=== PATIENT | female | born 1990 | race American Indian/Alaskan Native ===

== ENCOUNTER 2018-05-15 12:11 | Outpatient (CLI) | payer MEDICAID ==
[2018-05-15] MEDS ORDERED: LACTATED RINGERS 500 ML IV ONE (13:08)
--- NOTE | 2018-05-15 13:25 | Event Note ---
Date: 05/15/18 Pt denies any additional leaking. pad and chux dry. Spec exam done - thick yeast like discharge noted. nitrazine negative. Wet prep sent to lab. will get gary. [facility] Cat 1. Discussed with patient - will d/c home if GARY normal. rx printed for terazol.
[2018-05-15 13:27] LABS: Bacteria,Urine 1+ /HPF (Negative); Bilirubin,Urine NEG (Negative); Blood,Urine NEG (Negative); Color,Urine Yellow (Yellow); Mucus,Urine FEW /HPF; Protein,Urine <15 mg/dL mg/dL (Negative); Urobilinogen,Urine < 2.0 mg/dL (<2.0)
[2018-05-15 14:01] VITALS: BP 110/66
--- NOTE | 2018-05-16 07:41 | Ultrasound Report ---
FINAL REPORT PROCEDURE: US OB LIMITED TECHNIQUE: Real-time limited sonographic examination was performed for evaluation of size, pos ition, heartbeat, fluid volume for each fetus with image documentation (1 or more fetuses). CPT 7681 5 HISTORY: ashley COMPARISON: No prior studies are available for comparison. FINDINGS: The amniotic fluid index is 12.9 centimeters. position is cephalic. heart rate is 146 beats per minute. IMPRESSION: Normal amniotic fluid index.
== END 2018-05-15 15:55 | disposition home or self-care (01) ==
LOC: TRG 12:11
PROVIDERS: ATTEND Obstetrics & Gynecology
DX: O47.02 False labor before 37 completed weeks of gestation, second trimester (principal); Z3A.24 24 weeks gestation of pregnancy
CPT/HCPCS: 59025; 76815; 81001; 87210

== ENCOUNTER 2018-07-01 19:40 | Outpatient (CLI) | payer MEDICAID ==
[2018-07-01 22:03] VITALS: BP 141/83
[2018-07-01] MEDS ORDERED: LACTATED RINGERS 1,000 ML IV ONE (22:03)
[2018-07-01 23:14] LABS: Bilirubin,Urine NEG (Negative); Blood,Urine SM (Negative); Color,Urine Yellow (Yellow); Hyaline Casts,Urine 1 /LPF; Mucus,Urine FEW /HPF; Protein,Urine <15 mg/dL mg/dL (Negative); Urobilinogen,Urine < 2.0 mg/dL (<2.0)
--- NOTE | 2018-07-01 23:45 | Ultrasound Report ---
PROCEDURE: US OB BPP WO NON-STRESS TECHNIQUE: Sonographic evaluation for breathing, movement, tone, and amniotic flui d volume was performed. HISTORY: decrease movement COMPARISONS: None . FINDINGS: FETUS Amniotic fluid volume Normal-score 2. At least one vertical pocket >2 cm or more in vertical axis . breathing: Normal-score 2 . movement: Normal-score 2 . tone: Normal-score 2 . Score: 8 of 8 . IMPRESSION: Normal biophysical profile . This document is electronically signed by Keyanna Alatorre DO., July 01 2018 11:43:09 PM ET
== END 2018-07-02 00:01 | disposition home or self-care (01) ==
LOC: TRG 19:40
PROVIDERS: ATTEND Obstetrics & Gynecology
DX: O47.03 False labor before 37 completed weeks of gestation, third trimester (principal); Z3A.31 31 weeks gestation of pregnancy
CPT/HCPCS: 59025; 76819; 81001; 96360; J7120

== ENCOUNTER 2018-08-19 20:56 | Outpatient (CLI) | payer MEDICAID | END 2018-08-19 22:35 | disposition home or self-care (01) | LOC: TRG 20:56 | PROVIDERS: ATTEND Obstetrics & Gynecology | DX: O88.113 Amniotic fluid embolism in pregnancy, third trimester (principal); Z3A.38 38 weeks gestation of pregnancy ==

== ENCOUNTER 2018-09-02 12:02 | Inpatient (IN) | payer MEDICAID ==
[2018-09-02 13:50] LABS: Hematocrit 37.4 % (30.3-42.9); Hemoglobin 12.3 gm/dl (10.1-14.3); Mean Corpuscular HGB Conc 33 % (30-34); Mean Corpuscular Volume 86 fl (79-97); Platelet Count 136 K/mm3 (140-440); Red Blood Count 4.37 M/mm3 (3.65-5.03); Red Cell Distribution Width 15.9 % (13.2-15.2)
[2018-09-02 14:07] LABS: Uric Acid 6.5 mg/dL (3.5-7.6)
[2018-09-02 14:11] LABS: Alanine Aminotransferase < 5 units/L (7-56)
[2018-09-02] MEDS ORDERED: TYLENOL PO ONE (17:08)
[2018-09-02 17:29] LABS: Bacteria,Urine 1+ /HPF (Negative); Bilirubin,Urine NEG (Negative); Blood,Urine NEG (Negative); Color,Urine Yellow (Yellow); Protein,Urine <15 mg/dL mg/dL (Negative); Urobilinogen,Urine < 2.0 mg/dL (<2.0)
[2018-09-02] MEDS ORDERED: BRETHINE IVP PRN (17:39)
[2018-09-02] MEDS ORDERED: MINERAL OIL PO PRN (17:39)
[2018-09-02] MEDS ORDERED: ZOFRAN IV PRN (17:39)
[2018-09-02] MEDS ORDERED: BRETHINE SUB-Q PRN (17:39)
--- NOTE | 2018-09-02 17:53 | History and Physical Report ---
History of Present Illness Date of examination: 09/02/18 Chief complaint: Headaches @ 40+2, mildly elevated b/p History of present illness: EDC Confirmation: 08/31/2018 Past History : 1 Term Births: 0 Premature Births: 0 Living Children: 0 Para: 0 Mult. Births: 0 Prev : 0 Prev. attempt? 0 Aborta: 0 Elect. Ab: 0 Spont. Ab: 0 Ectopics: 0 Past Medical History: Reviewed history from 09/18/2017 and no changes required: Chronic sinusitis Headaches(Migraines) Past Surgical History: Reviewed history from 09/18/2017 and no changes required: Negative Past Surgical History Past Medical History Family Hx: Maternal aunt: DM and HTN Social Hx: Patient is single no ETOH/drugs/smoking Smoking History: Patient has never smoked. Infection History Hx of STD: trich HIV Risk Eval: low risk Hepatitis B Risk Eval: low risk Personal hx. of genital herpes: no Partner hx. of genital herpes: no Rash, Viral, or Febrile illness since last LMP? no Varicella/Chicken Pox Status: Unknown TB Risk: no Genetic History Congenital Heart Defect: Mom: no Dad: no Kristen Disease: Mom: no Dad: no Thalassemia Mom: no Dad: no Neural Tube Defect Mom: no Dad: no Down's Syndrome Mom: no Dad: no Baron-Sachs Mom: no Dad: no Sickle Cell Disease/Trait Mom: no Dad: no Hemophilia Mom: no Dad: no Muscular Dystrophy Mom: no Dad: no Cystic Fibrosis Mom: no Dad: no Anabel Chorea Mom: no Dad: no Mental Retardation Mom: no Dad: no Fragile X Mom: no Dad: no Other Genetic/Chromosomal Disorder Mom: no Dad: no Child w/other defect Mom: no Dad: no Enviromental Exposures Xray Exposure: no Medication, drug, or alcohol use since LMP: no Chemical/Other Exposure: no Exposure to Cat Liter: no Hx of Parvovirus (Fifth Disease): no Occupational Exposure to Children: none Active Medications: PLUS 27-1 MG ORAL TABLET ( VIT-FE FUMARATE-FA) 1 po daily Current Allergies (reviewed today): No known allergies Past History Past Medical History: other (see HPI) Past Surgical History: other (see HPI) COATER SLATE History: other (see HPI) Family/Genetic History: other (see HPi) - Obstetrical History Expected Date of Delivery: 08/31/18 Actual Gestation: 40 Week(s) 2 Day(s) : 1 Para: 0 Hx # Term Pregnancies: 0 Number of Pregnancies: 0 Spontaneous Abortions: 0 Induced : 0 Number of Living Children: 0 Medications and Allergies Allergies Allergy/AdvReac Type Severity Reaction Status Date / Time latex Allergy Rash Verified 09/02/18 14:11 Home Medications Medication Instructions Recorded Confirmed Last Taken Type Terconazole [Terazol 7] 7 applic VG QHS 7 Days #7 05/15/18 Unknown Rx cream.appl Active Meds: Active Medications Dinoprostone (Cervidil) 10 mg VG ONCE ONE Stop: 09/02/18 17:40 Ephedrine Sulfate (Ephedrine Sulfate) 10 mg IV Q2M PRN PRN Reason: Hypotension Oxytocin/Sodium Chloride (Pitocin/Ns 20 Unit/1000ml Drip) 20 units in 1,000 mls @ 125 mls/hr IV DIRECT PERCY Lactated Ringer's (Lactated Ringers) 1,000 mls @ 125 mls/hr IV DIRECT PERCY Lidocaine (Xylocaine 2%) 20 ml INFILTRATI ONCE ONE Stop: 09/02/18 17:40 Mineral Oil (Mineral Oil) 30 ml PO QHS PRN PRN Reason: Constipation Ondansetron HCl (Zofran) 4 mg IV Q8H PRN PRN Reason: Nausea And Vomiting Terbutaline Sulfate (Brethine) 0.25 mg SUB-Q ONCE PRN PRN Reason: Hyperstimulation/Hypertonicity Terbutaline Sulfate (Brethine) 0.25 mg IVP ONCE PRN PRN Reason: Hyperstimulation/Hypertonicity Review of Systems All systems: negative - Vital Signs Vital signs: Vital Signs Temp Resp 98.1 F 18 09/02/18 14:16 09/02/18 14:16 Temp Pulse Resp BP Pulse Ox 98.1 F 76 18 139/99 09/02/18 14:16 09/02/18 17:28 09/02/18 17:28 09/02/18 17:29 - Physical Exam Breasts: Positive: normal Cardiovascular: Regular rate Lungs: Positive: Clear to auscultation, Normal air movement Abdomen: Positive: normal appearance, soft Genitourinary (Female): Positive: normal external genitalia, normal perenium Vulva: both: normal Uterus: Positive: normal size, normal contour Anus/Rectum: Positive: normal perianal skin Extremities: Positive: normal Deep Tendon Reflex Grade: Normal +2 - Obstetrical FHR: category 1 Uterine Contraction Monitor Mode: External Cervical Dilatation: 1 Cervical Effacement Percentage: 40 station: -1 Uterine Contraction Pattern: Absent Results Result Diagrams: 09/02/18 13:29 09/02/18 13:29 Abnormal lab results 09/02/18 09/02/18 09/02/18 Range/Units 13:29 13:29 17:05 RDW 15.9 H (13.2-15.2) % Plt Count 136 L (140-440) K/mm3 ALT < 5 L (7-56) units/L Lactate Dehydrogenase 251 H (91-180) units/L U Epithel Cells (Auto) 15.0 H (0-13.0) /HPF All other labs normal. Assessment and Plan 28y/o @ 40+2 weeks, presented to triage w/ c/o MCGOVERN x 2 days and elevated b/p at home. pre-e labs normal. pt reports MCGOVERN is improving after dose of Tylenol. she has elevated b/p while being in triage. Plan for IOL tonight d/t gestational htn. reviewed with patient and s/o, questions addressed. Discussed nature of serial IOL, cervidil tonight followed by pitocin in the AM. Pt and spouse verbalized understanding of plan of care. Dr. Guillen consulted. - Patient Problems (1) 40 weeks gestation of Current Visit: Yes Status: Acute (2) Gestational hypertension Current Visit: Yes Status: Acute Qualifiers: Trimester: third trimester Qualified Code(s): O13.3 - Gestational [-induced] hypertension without significant proteinuria, third trimester Plan to address problem: IOL cervidil tonight monitor b/p closely watch for s/s pre-e
[2018-09-02] MEDS ORDERED: PITOCin/NS 20 UNIT/1000ML DRIP 20 UNITS/1,000 ML BAG IV SCH (18:00)
[2018-09-02] MEDS ORDERED: LACTATED RINGERS 1,000 ML IV SCH (18:00)
[2018-09-02] MEDS ORDERED: AMBIEN PO PRN (18:14)
[2018-09-02] MEDS ORDERED: XYLOCAINE 2% INFILTRATI ONE (18:39)
[2018-09-02] MEDS ORDERED: CERVIDIL VG ONE (18:39)
--- NOTE | 2018-09-03 08:36 | Progress Note ---
Subjective - Subjective Date of service: 09/03/18 Objective - Vital Signs Vital Signs: Vital Signs - 12hr 09/02/18 09/02/18 09/02/18 21:30 22:29 23:29 Pulse Rate 78 81 81 Blood Pressure 139/94 120/73 122/73 09/03/18 09/03/18 09/03/18 01:30 02:30 04:29 Pulse Rate 71 71 71 Blood Pressure 128/66 138/74 133/67 09/03/18 09/03/18 09/03/18 05:30 06:29 07:29 Pulse Rate 82 85 75 Blood Pressure 134/70 136/89 138/87 - Labs Labs: Abnormal Labs 09/02/18 09/02/18 09/02/18 13:29 13:29 17:05 RDW 15.9 H Plt Count 136 L ALT < 5 L Lactate Dehydrogenase 251 H U Epithel Cells (Auto) 15.0 H Laboratory Results - last 24 hr 09/02/18 09/02/18 09/02/18 13:29 13:29 17:05 WBC 9.2 RBC 4.37 Hgb 12.3 Hct 37.4 MCV 86 MCH 28 MCHC 33 RDW 15.9 H Plt Count 136 L Creatinine 0.8 Estimated GFR > 60 Uric Acid 6.5 AST 14 ALT < 5 L Lactate Dehydrogenase 251 H Urine Color Yellow Urine Turbidity Slightly-cloudy Urine pH 6.0 Ur Specific [place] 1.008 Urine Protein <15 mg/dl Urine Glucose (UA) Neg Urine Ketones Neg Urine Blood Neg Urine Nitrite Neg Urine Bilirubin Neg Urine Urobilinogen < 2.0 Ur Leukocyte Esterase Sm Urine WBC (Auto) 2.0 Urine RBC (Auto) 2.0 U Epithel Cells (Auto) 15.0 H Urine Bacteria (Auto) 1+ Blood Type Antibody Screen BRISSA Antibody Screen 09/02/18 19:30 WBC RBC Hgb Hct MCV MCH MCHC RDW Plt Count Creatinine Estimated GFR Uric Acid AST ALT Lactate Dehydrogenase Urine Color Urine Turbidity Urine pH Ur Specific [place] Urine Protein Urine Glucose (UA) Urine Ketones Urine Blood Urine Nitrite Urine Bilirubin Urine Urobilinogen Ur Leukocyte Esterase Urine WBC (Auto) Urine RBC (Auto) U Epithel Cells (Auto) Urine Bacteria (Auto) Blood Type O POSITIVE Antibody Screen TNR BRISSA Antibody Screen Negative
--- NOTE | 2018-09-03 08:40 | Progress Note ---
Assessment and Plan Patient reports sleeping ok throughout the night, denies any pain, contractions, LOF, or VB. +FM. Cat 1 tracing at this time. Irregular mild contractions on TOCO. Cervidil discontinued. SVE 1.5/70/-1, IBOW, vertex. Plan for shower and breakfast, then will start pitocin per protocol. Anticipate . Subjective - Subjective Date of service: 09/03/18 Principal diagnosis: 40w3d IOL GHTN Patient reports: movement normal, no new complaints, no loss of fluid, no vaginal bleeding, no contractions Objective - Vital Signs Vital Signs: Vital Signs - 12hr 09/02/18 09/02/18 09/02/18 21:30 22:29 23:29 Pulse Rate 78 81 81 Blood Pressure 139/94 120/73 122/73 09/03/18 09/03/18 09/03/18 01:30 02:30 04:29 Pulse Rate 71 71 71 Blood Pressure 128/66 138/74 133/67 09/03/18 09/03/18 09/03/18 05:30 06:29 07:29 Pulse Rate 82 85 75 Blood Pressure 134/70 136/89 138/87 - Exam Breasts: normal Cardiovascular: Regular rate, Normal S1, Normal S2 Lungs: Clear to auscultation Abdomen: Present: normal appearance, soft, normal bowel sounds. Absent: distention, tenderness Vulva: both: normal Uterus: Present: normal FHR: auscultation normal Uterine Contraction Monitor Mode: External Uterine Contraction Pattern: Irregular Uterine Tone Measurement Phase: Contraction Uterine Contraction Intensity: Mild - Labs Labs: Abnormal Labs 09/02/18 09/02/18 09/02/18 13:29 13:29 17:05 RDW 15.9 H Plt Count 136 L ALT < 5 L Lactate Dehydrogenase 251 H U Epithel Cells (Auto) 15.0 H Laboratory Results - last 24 hr 09/02/18 09/02/18 09/02/18 13:29 13:29 17:05 WBC 9.2 RBC 4.37 Hgb 12.3 Hct 37.4 MCV 86 MCH 28 MCHC 33 RDW 15.9 H Plt Count 136 L Creatinine 0.8 Estimated GFR > 60 Uric Acid 6.5 AST 14 ALT < 5 L Lactate Dehydrogenase 251 H Urine Color Yellow Urine Turbidity Slightly-cloudy Urine pH 6.0 Ur Specific [place] 1.008 Urine Protein <15 mg/dl Urine Glucose (UA) Neg Urine Ketones Neg Urine Blood Neg Urine Nitrite Neg Urine Bilirubin Neg Urine Urobilinogen < 2.0 Ur Leukocyte Esterase Sm Urine WBC (Auto) 2.0 Urine RBC (Auto) 2.0 U Epithel Cells (Auto) 15.0 H Urine Bacteria (Auto) 1+ Blood Type Antibody Screen BRISSA Antibody Screen 09/02/18 19:30 WBC RBC Hgb Hct MCV MCH MCHC RDW Plt Count Creatinine Estimated GFR Uric Acid AST ALT Lactate Dehydrogenase Urine Color Urine Turbidity Urine pH Ur Specific [place] Urine Protein Urine Glucose (UA) Urine Ketones Urine Blood Urine Nitrite Urine Bilirubin Urine Urobilinogen Ur Leukocyte Esterase Urine WBC (Auto) Urine RBC (Auto) U Epithel Cells (Auto) Urine Bacteria (Auto) Blood Type O POSITIVE Antibody Screen TNR BRISSA Antibody Screen Negative
--- NOTE | 2018-09-03 09:11 | Event Note ---
Date: 09/03/18 Cont serial IOL Daty #1- will allow pt to eat and have pericare and start pitcin there after.
[2018-09-03] MEDS ORDERED: AMPICILLIN/NS 2 GM/100 ML 2 GM/100 ML BAG IV ONE (10:00)
[2018-09-03] MEDS ORDERED: PITOCin/NS 30 UNIT/500ML 30 UNITS/500 ML BAG IV SCH ×2 (11:00)
[2018-09-03] MEDS: AMPICILLIN/NS 1 GM/50 ML 1 GM/50 ML BAG IV SCH ×3 (13:30→22:56)
[2018-09-03] MEDS ORDERED: SUBLIMAZE ONE (21:49)
[2018-09-03] MEDS ORDERED: MARCAINE 0.25% INFILTRATI ONE (21:49)
[2018-09-03] MEDS ORDERED: NARCAN 2 MG/2 ML IV PRN (22:28)
--- NOTE | 2018-09-03 22:28 | Anesthesia Consultation ---
Anesthesia Consult and Med Hx Date of service: 09/03/18 - Airway Anesthetic Teeth Evaluation: Good ROM Head & Neck: Adequate Mental/Hyoid Distance: Adequate Mallampati Class: Class II Intubation Access Assessment: Probably Good - Pulmonary Exam CTA: Yes - Cardiac Exam Cardiac Exam: RRR - Pre-Operative Health Status ASA Pre-Surgery Classification: ASA2 Proposed Anesthetic Plan: Epidural - Pulmonary Hx Asthma: No COPD: No Hx Pneumonia: No - Cardiovascular System Hx Hypertension: No - Central Nervous System Hx Seizures: No Hx Psychiatric Problems: No - Endocrine Hx Renal Disease: No Hx End Stage Renal Disease: No Hx Hypothyroidism: No Hx Hyperthyroidism: No - Hematic Hx Anemia: No Hx Sickle Cell Disease: No - Other Systems Hx Alcohol Use: No
[2018-09-03] MEDS ORDERED: fentaNYL-BUPIV 2 MCG/ML-0.125% 200 MCG/100 ML BAG EPIDURAL SCH (23:00)
--- NOTE | 2018-09-03 23:43 | Progress Note ---
Assessment and Plan Patient reports being comfortable s/p epidural placement, unaware of contractions at this time. Deceleration noted d/t decrease in BP, corrected with ephedrine. SVE remains unchanged since time of rupture, continued leaking of clear amniotic fluid. FSE and IUPC placed with permission from patient, risks and benefits discussed. Will restart pitocin once FHTs allow. Continued administration of abx for +GBS. VSSAF. Dr. Beauchamp aware of assessment and POC. Anticipate . Subjective - Subjective Date of service: 09/03/18 Principal diagnosis: 40w3d IOL GHTN Patient reports: loss of fluid (continued since SROM, clear), movement normal, contractions (unaware of contractions since epidural), no new complaints, no vaginal bleeding Objective - Vital Signs Vital Signs: Vital Signs - 12hr 09/03/18 09/03/18 09/03/18 12:30 14:00 14:29 Temperature 97.9 F Pulse Rate 66 94 H Respiratory 14 Rate Blood Pressure 126/75 122/73 Blood Pressure [Left] O2 Sat by Pulse Oximetry 09/03/18 09/03/18 09/03/18 15:30 16:30 17:36 Temperature Pulse Rate 75 72 72 Respiratory Rate Blood Pressure 117/63 129/66 141/85 Blood Pressure [Left] O2 Sat by Pulse Oximetry 09/03/18 09/03/18 09/03/18 18:00 18:30 19:29 Temperature 98.1 F Pulse Rate 74 78 Respiratory Rate Blood Pressure 127/75 139/85 Blood Pressure [Left] O2 Sat by Pulse Oximetry 09/03/18 09/03/18 09/03/18 19:43 19:44 21:29 Temperature 98.4 F Pulse Rate 82 68 Respiratory 18 Rate Blood Pressure 141/88 134/73 Blood Pressure 141/88 [Left] O2 Sat by Pulse Oximetry 09/03/18 09/03/18 09/03/18 21:58 21:59 22:00 Temperature Pulse Rate 91 H 107 H 117 H Respiratory Rate Blood Pressure 144/101 162/113 Blood Pressure [Left] O2 Sat by Pulse 88 Oximetry 09/03/18 09/03/18 09/03/18 22:03 22:04 22:05 Temperature Pulse Rate 67 93 H Respiratory Rate Blood Pressure 137/88 Blood Pressure [Left] O2 Sat by Pulse 78 L 88 Oximetry 09/03/18 09/03/18 09/03/18 22:06 22:08 22:10 Temperature Pulse Rate 89 83 100 H Respiratory Rate Blood Pressure 140/97 139/87 Blood Pressure [Left] O2 Sat by Pulse 97 91 Oximetry 09/03/18 09/03/18 09/03/18 22:12 22:14 22:15 Temperature Pulse Rate 90 115 H 105 H Respiratory Rate Blood Pressure 134/77 136/80 Blood Pressure [Left] O2 Sat by Pulse 98 Oximetry 09/03/18 09/03/18 09/03/18 22:16 22:18 22:20 Temperature Pulse Rate 104 H 99 H 94 H Respiratory Rate Blood Pressure 146/78 139/71 Blood Pressure [Left] O2 Sat by Pulse 98 Oximetry 09/03/18 09/03/18 09/03/18 22:25 22:26 22:30 Temperature Pulse Rate 84 80 83 Respiratory Rate Blood Pressure 106/53 Blood Pressure [Left] O2 Sat by Pulse 98 100 Oximetry 09/03/18 09/03/18 09/03/18 22:32 22:35 22:37 Temperature Pulse Rate 85 78 77 Respiratory Rate Blood Pressure 116/54 103/52 Blood Pressure [Left] O2 Sat by Pulse 100 Oximetry 09/03/18 09/03/18 09/03/18 22:40 22:41 22:45 Temperature Pulse Rate 92 H 123 H 104 H Respiratory Rate Blood Pressure 114/56 Blood Pressure [Left] O2 Sat by Pulse 100 100 Oximetry 09/03/18 09/03/18 09/03/18 22:48 22:50 22:54 Temperature Pulse Rate 96 H 110 H 100 H Respiratory Rate Blood Pressure 136/62 115/53 Blood Pressure [Left] O2 Sat by Pulse 100 Oximetry 09/03/18 09/03/18 09/03/18 22:55 23:00 23:05 Temperature Pulse Rate 99 H 102 H 102 H Respiratory Rate Blood Pressure Blood Pressure [Left] O2 Sat by Pulse 100 100 100 Oximetry 09/03/18 09/03/18 09/03/18 23:10 23:15 23:20 Temperature Pulse Rate 91 H 111 H 117 H Respiratory Rate Blood Pressure 128/66 Blood Pressure [Left] O2 Sat by Pulse 100 100 99 Oximetry 09/03/18 09/03/18 09/03/18 23:22 23:25 23:30 Temperature 98.3 F Pulse Rate 112 H 102 H Respiratory Rate Blood Pressure 115/71 Blood Pressure [Left] O2 Sat by Pulse 98 98 Oximetry 09/03/18 23:35 Temperature Pulse Rate 107 H Respiratory Rate Blood Pressure Blood Pressure [Left] O2 Sat by Pulse 98 Oximetry - Exam Breasts: normal Cardiovascular: Regular rate, Normal S1, Normal S2 Lungs: Clear to auscultation Abdomen: Present: normal appearance, soft, normal bowel sounds. Absent: distention, tenderness Vulva: both: normal Uterus: Present: normal FHR: auscultation normal Uterine Contraction Monitor Mode: Internal Cervical Dilatation: 3.5 Cervical Effacement Percentage: 70 station: -1 Uterine Contraction Pattern: Irregular (since pitocin discontinued) Uterine Tone Measurement Phase: Contraction Uterine Contraction Intensity: Mild Extremities: normal Deep Tendon Reflex Grade: Normal +2 - Labs Labs: Abnormal Labs 09/02/18 09/02/18 09/02/18 13:29 13:29 17:05 RDW 15.9 H Plt Count 136 L ALT < 5 L Lactate Dehydrogenase 251 H U Epithel Cells (Auto) 15.0 H Laboratory Results - last 24 hr 09/02/18 09/03/18 19:30 12:42 RPR Nonreactive Hep Bs Antigen Non-reactive
[2018-09-04] MEDS ORDERED: MARCAINE 0.25% INFILTRATI ONE (00:54)
[2018-09-04] MEDS ORDERED: SUBLIMAZE ONE (00:54)
[2018-09-04] MEDS ORDERED: PEPCID IV ONE (01:08)
[2018-09-04] MEDS ORDERED: DECADRON ONE (02:13)
[2018-09-04] MEDS ORDERED: ZOFRAN ONE (02:13)
[2018-09-04] MEDS ORDERED: REGLAN ONE (02:13)
[2018-09-04] MEDS ORDERED: TUCKS PAD TP PRN (02:21)
[2018-09-04] MEDS ORDERED: NARCAN 0.4 MG/1 ML IV PRN ×2 (02:21→02:31)
[2018-09-04] MEDS ORDERED: LANSINOH TP PRN (02:21)
--- NOTE | 2018-09-04 02:30 | Anesthesia Day of Surgery ---
Anesthesia Day of Surgery - Day of Surgery Patient Examined: Yes Patient H&P Reviewed: Yes Patient is NPO: Yes Dung's Test: N/A
[2018-09-04] MEDS ORDERED: MORPHINE IV PRN (02:31)
[2018-09-04] MEDS ORDERED: PHENERGAN PR PRN (02:31)
[2018-09-04] MEDS ORDERED: ZOFRAN IV PRN (02:31)
[2018-09-04] MEDS ORDERED: DILAUDID IV PRN (02:31)
[2018-09-04] MEDS ORDERED: PHENERGAN PO PRN (02:31)
--- NOTE | 2018-09-04 02:31 | Post Anesthesia Evaluation ---
- Post Anesthesia Evaluation Patient Participated: Yes Airway Patent: Yes Stable Respiratory Function: Yes Nausea/Vomiting: No Temp > 96.8F: Yes Pain Manageable: Yes Adequeate Hydration: Yes Anesthesia Complications: No Patient on Ventilator: No
[2018-09-04] MEDS ORDERED: NACL 0.9% IR ONE (02:32)
[2018-09-04] MEDS ORDERED: WATER FOR IRRIG STERILE IR ONE (02:32)
--- NOTE | 2018-09-04 02:53 | Operative Report ---
Operative Report Operative Report: Date of procedure: 09/04/2018 Pre-operative diagnosis: 40 weeks gestation Group B strep positive Fascia to progress Post-operative diagnosis: Same plus nuchal cord Procedure name(s): Primary low transverse section via Pfannenstiel skin incision Surgeon: Dr. Beauchamp Jack Spooler Tender: CAMI Anesthesia: Spinal epidural EBL: 500 mL Urine output: 300 mL of clear urine out at end of procedure Fluids: 700 mL Findings: Liveborn male in ROP presentation weight 7 pounds 15.4 ounces Apgars of 8 and 9 at one and 5 minutes Grossly normal fallopian tubes and ovaries bilaterally Cord 1 easily reduced Indications: Patient presented with elevated blood pressures and was admitted for induction of labor. Patient spontaneously ruptured membranes. Patient progressed approximately 3 cm 70% effaced and -1 station. Patient was noted to have variable and late decelerations. Decelerations spontaneously resolved. Patient desired to have section due to no progression of labor well over 12 hours. Procedure: Patient was taking to the operating room. Patient was then prepped and draped in sterile fashion after anesthesia was found to be adequate. A low transverse skin incision was made with the scalpel and carried down to the underlying layer of fascia with the Bovie. The fascia was then incised in the midline and this incision was extended bilaterally with the Bovie. The superior aspect of the fascia was grasped with Patti clamps tented upward and dissected off of the anterior rectus muscles with the scalpel. In similar fashion the inferior aspect of the fascia was grasped with Patti clamps tented upward and dissected off of the anterior rectus muscles. The rectus muscles were then bluntly divided in the midline. The peritoneum was identified and entered into sharply. The bladder blade was placed. The bladder flap was created using the Metzenbaum scissors. The bladder blade was replaced. A lower transverse uterine incision was made with the scalpel and extended bilaterally with blunt dissection. Entry into the uterus yielded clear amniotic fluid. The infant's head was then delivered atraumatically. Nuchal cord 1 was noted and easily reduced. The anterior shoulder and rest of delivered without difficulty. The umbilical cord was clamped x2. The cord was cut. The infant was then placed in sterile bassinet. The cord blood was collected. The placenta was manually extracted in its entirety. The uterus was exteriorized and cleared of all clots and debris. The uterine incision was closed using 0 Vicryl in a running locking fashion. A second imbricating layer of the same suture was then created. The posterior cul-de-sac was copiously irrigated. The uterus was returned to the abdomen. The gutters were also irrigated. The anterior rectus muscles were reapproximated using 3-0 Vicryl. The anterior rectus fascia was reapproximated using 0 Vicryl in a running fashion. The subcuticular fat was reapproximated using 2-0 Vicryl in a running fashion. The skin was reapproximated with 4-0 Monocryl in a subcuticular stitch. The patient tolerated the procedure well. Sponge lap and needle counts were all correct x3. Patient was taken to the recovery room awake and in stable condition.
[2018-09-04] MEDS ORDERED: PITOCin/NS 20 UNIT/1000ML DRIP 20 UNITS/1,000 ML BAG IV SCH (03:00)
[2018-09-04] MEDS ORDERED: SODIUM CHLORIDE FLUSH SYRINGE 10 ML IV PRN ×2 (03:00)
[2018-09-04] MEDS ORDERED: D5LR 1,000 ML IV SCH (03:00)
--- NOTE | 2018-09-04 06:17 | Progress Note ---
Assessment and Plan - Patient Problems (1) delivery delivered Onset Date: ~09/04/18 Current Visit: Yes Status: Acute Plan to address problem: Continue c/s pathway Advance as tolerated. Abdominal binder to be placed. Subjective - Subjective Date of service: 09/04/18 (pt resting C/O some incisional pain) Principal diagnosis: 5hrs s/p section Patient reports: voiding normally (clear yellow urine to obando) : doing well Objective - Vital Signs Latest vital signs: Vital Signs Temp Pulse Resp BP BP Pulse Ox 09/04/18 03:30 98.7 F 96 H 19 131/87 98 09/04/18 03:15 112 H 20 142/71 99 09/04/18 03:00 110 H 20 130/71 100 09/04/18 02:45 111 H 16 130/70 100 09/04/18 02:40 102 H 15 117/60 99 09/04/18 02:35 120 H 14 129/66 99 09/04/18 02:30 97.7 F 114 H 20 91/40 100 09/04/18 00:57 131 H 135/84 09/04/18 00:55 133 H 100 09/04/18 00:50 126 H 98 09/04/18 00:45 125 H 100 09/04/18 00:42 117 H 134/71 09/04/18 00:41 125 H 164/108 09/04/18 00:40 133 H 100 09/04/18 00:35 112 H 99 09/04/18 00:30 118 H 99 09/04/18 00:28 83 93 09/04/18 00:25 82 131/63 98 09/04/18 00:20 87 98 09/04/18 00:15 92 H 99 09/04/18 00:13 105 H 91 09/04/18 00:11 93 H 134/79 09/04/18 00:10 107 H 99 09/04/18 00:05 95 H 98 09/04/18 00:00 103 H 99 09/03/18 23:55 98 H 132/71 97 09/03/18 23:50 111 H 97 09/03/18 23:45 103 H 98 09/03/18 23:41 103 H 127/65 09/03/18 23:40 82 100 09/03/18 23:35 107 H 98 09/03/18 23:30 102 H 98 09/03/18 23:25 112 H 115/71 98 09/03/18 23:22 98.3 F 09/03/18 23:20 117 H 99 09/03/18 23:15 111 H 100 09/03/18 23:10 91 H 128/66 100 09/03/18 23:05 102 H 100 09/03/18 23:00 102 H 100 09/03/18 22:55 99 H 100 09/03/18 22:54 100 H 115/53 09/03/18 22:50 110 H 100 09/03/18 22:48 96 H 136/62 09/03/18 22:45 104 H 100 09/03/18 22:41 123 H 114/56 09/03/18 22:40 92 H 100 09/03/18 22:37 77 103/52 09/03/18 22:35 78 100 09/03/18 22:32 85 116/54 09/03/18 22:30 83 100 09/03/18 22:26 80 106/53 09/03/18 22:25 84 98 09/03/18 22:20 94 H 98 09/03/18 22:18 99 H 139/71 09/03/18 22:16 104 H 146/78 09/03/18 22:15 105 H 98 09/03/18 22:14 115 H 136/80 09/03/18 22:12 90 134/77 09/03/18 22:10 100 H 91 09/03/18 22:08 83 139/87 97 09/03/18 22:06 89 140/97 09/03/18 22:05 88 09/03/18 22:04 93 H 137/88 09/03/18 22:03 67 78 L 09/03/18 22:00 117 H 162/113 09/03/18 21:59 107 H 144/101 09/03/18 21:58 91 H 88 09/03/18 21:29 68 134/73 09/03/18 19:44 82 141/88 09/03/18 19:43 98.4 F 18 141/88 09/03/18 19:29 78 139/85 09/03/18 18:30 74 127/75 09/03/18 18:00 98.1 F 09/03/18 17:36 72 141/85 09/03/18 16:30 72 129/66 09/03/18 15:30 75 117/63 09/03/18 14:29 94 H 122/73 09/03/18 14:00 97.9 F 14 09/03/18 12:30 66 126/75 09/03/18 11:29 88 134/81 09/03/18 11:17 96 H 139/83 09/03/18 11:16 97.6 F 96 H 16 139/83 09/03/18 07:29 75 138/87 09/03/18 06:29 85 136/89 Intake and Output 09/03/18 09/03/18 09/04/18 14:59 22:59 06:59 Intake Total 56.666 976.85 1096.333 Output Total 400 Balance 56.666 976.85 696.333 Intake: IV 56.666 976.85 1096.333 AMPICILLIN/NS 1 GM/50 ML 50 50 1 gm In 50 ml @ 100 mls/ hr IV Q4HR [facility] Rx#: [id number] Lactated Ringers 1,000 ml 856.25 @ 125 mls/hr IV DIRECT [facility] Rx#:[id number] PITOCin/NS 30 UNIT/500ML 6.666 70.6 96.333 30 units In 500 ml @ 4 mls/hr IV TITR [facility] Rx#: [id number] Output: Urine 400 Other: # Voids Void 2 1 Estimated Blood Loss 500 - Exam Breasts: Present: normal Cardiovascular: Present: Regular rate Lungs: Present: Clear to auscultation Abdomen: Present: normal appearance, soft, normal bowel sounds Uterus: Present: normal, fundal height at umbilicus Extremities: Present: normal, edema Deep Tendon Reflex Grade: Normal +2 Incision: Present: normal, dry, intact, dressed (to be removed tonight)
[2018-09-04] MEDS: TORADOL IV PRN ×2 (06:43→16:31)
[2018-09-04] MEDS: PRENATAL VITAMIN PO SCH (10:57)
[2018-09-04] MEDS: ANCEF/NS 1 GM/50 ML 1 GM/50 ML BAG IV SCH ×2 (13:45→23:52)
[2018-09-04 15:27] LABS: Hematocrit 32.8 % (30.3-42.9); Hemoglobin 10.7 gm/dl (10.1-14.3)
[2018-09-04] MEDS: NORCO 5/325 PO PRN (23:53)
[2018-09-05] MEDS ORDERED: BOOSTRIX IM ONE (06:00)
[2018-09-05] MEDS: IBUPROFEN PO PRN ×3 (06:40→18:08)
--- NOTE | 2018-09-05 08:11 | Progress Note ---
Assessment and Plan 28y/o postop day #2; continue postop pathway - Patient Problems (1) Gestational hypertension Current Visit: Yes Status: Acute Qualifiers: Trimester: third trimester Qualified Code(s): O13.3 - Gestational [-induced] hypertension without significant proteinuria, third trimester Plan to address problem: Pt denies MCGOVERN, visual changes or epigastric pain b/p's 130-140/70-80's. Continue monitoring for s/s of pre-e or worsening GHTN (2) delivery delivered Onset Date: ~09/04/18 Current Visit: Yes Status: Acute Plan to address problem: Dressing d&I (rn to remove after shower this morning) Lochia scant Fundus firm postop H&H 10.7/32.8 Continue postop pathway Subjective - Subjective Date of service: 09/05/18 Principal diagnosis: postop day #2 s/p primary c/s; GHTN Interval history: EDC Confirmation: 08/31/2018 Past History : 1 Term Births: 0 Premature Births: 0 Living Children: 0 Para: 0 Mult. Births: 0 Prev : 0 Prev. attempt? 0 Aborta: 0 Elect. Ab: 0 Spont. Ab: 0 Ectopics: 0 Past Medical History: Reviewed history from 09/18/2017 and no changes required: Chronic sinusitis Headaches(Migraines) Past Surgical History: Reviewed history from 09/18/2017 and no changes required: Negative Past Surgical History Past Medical History Family Hx: Maternal aunt: DM and HTN Social Hx: Patient is single no ETOH/drugs/smoking Smoking History: Patient has never smoked. Infection History Hx of STD: trich HIV Risk Eval: low risk Hepatitis B Risk Eval: low risk Personal hx. of genital herpes: no Partner hx. of genital herpes: no Rash, Viral, or Febrile illness since last LMP? no Varicella/Chicken Pox Status: Unknown TB Risk: no Genetic History Congenital Heart Defect: Mom: no Dad: no Kristen Disease: Mom: no Dad: no Thalassemia Mom: no Dad: no Neural Tube Defect Mom: no Dad: no Down's Syndrome Mom: no Dad: no Baron-Sachs Mom: no Dad: no Sickle Cell Disease/Trait Mom: no Dad: no Hemophilia Mom: no Dad: no Muscular Dystrophy Mom: no Dad: no Cystic Fibrosis Mom: no Dad: no [place] Chorea Mom: no Dad: no Mental Retardation Mom: no Dad: no Fragile X Mom: no Dad: no Other Genetic/Chromosomal Disorder Mom: no Dad: no Child w/other defect Mom: no Dad: no Enviromental Exposures Xray Exposure: no Medication, drug, or alcohol use since LMP: no Chemical/Other Exposure: no Exposure to Cat Liter: no Hx of Parvovirus (Fifth Disease): no Occupational Exposure to Children: none Active Medications: PLUS 27-1 MG ORAL TABLET ( VIT-FE FUMARATE-FA) 1 po daily Current Allergies (reviewed today): No known allergies Patient reports: appetite normal, voiding normally, pain well controlled, flatus, ambulating normally, no dizzy ambulation, no nauseated : doing well, nursing well Objective - Vital Signs Latest vital signs: Vital Signs Temp Pulse Resp BP BP Pulse Ox 09/04/18 23:50 109 H 142/87 97 09/04/18 22:25 97.9 F 105 H 20 142/87 98 09/04/18 19:43 98.8 F 84 136/78 96 09/04/18 16:18 98.6 F 83 16 138/73 98 09/04/18 09:38 97.7 F 78 14 135/75 99 Intake and Output 09/04/18 09/05/18 09/05/18 23:59 07:59 15:59 Intake Total 1120 50 Balance 1120 50 Intake: IV 50 ANCEF/NS 1 GM/50 ML 1 gm 50 In 50 ml @ 100 mls/hr IV Q8H [facility] Rx#:[id number] Oral 1120 Other: Total, Intake Amount 1120 Voiding Method Toilet # Voids 1 Void 1 - Exam Breasts: Present: normal, Cardiovascular: Present: Regular rate Lungs: Present: Clear to auscultation, Normal air movement Abdomen: Present: normal appearance, soft Vulva: both: normal Uterus: Present: normal, firm, fundal height at umbilicus Extremities: Present: normal Deep Tendon Reflex Grade: Normal +2 Incision: Present: normal, dry, dressed (rn to remove after shower this morning)
[2018-09-05] MEDS: PRENATAL VITAMIN PO SCH (11:01)
[2018-09-05] MEDS: NORCO 5/325 PO PRN ×2 (11:02→18:08)
[2018-09-06] MEDS: NORCO 5/325 PO PRN ×2 (02:03→10:46)
[2018-09-06] MEDS: IBUPROFEN PO PRN ×2 (02:03→10:46)
[2018-09-06] MEDS: PRENATAL VITAMIN PO SCH (10:46)
--- NOTE | 2018-09-06 11:14 | Discharge Summary ---
Providers - Providers Date of Admission: 09/02/18 19:39 Date of discharge: 09/06/18 Attending physician: RADHA BROWNING Primary care physician: RADHA BROWNING Hospitalization Reason for admission: active labor, IUP at term Delivery: Procedure: section, primary low transverse Incision: normal, dry, intact Other procedures: none complications: none Discharge diagnosis: IUP at term delivered baby: male Hospital course: Patient was admitted in labor but underwent arrest of dilatation incision was made to move to section. Her post operative course was benign she was afebrile throughout. Patient postoperative day 1 hematocrit was in an acceptable range. Patient had no orthostatic symptoms. Patient was tolerating regular diet and voiding without difficulty at time of discharge. Patient incision was healing well without evidence of infection. Patient is breast and bottle feeding. He is unsure about control. Condition at discharge: Good Disposition: DC-30 STILL A PATIENT - Discharge Diagnoses (1) 40 weeks gestation of Status: Acute (2) delivery delivered Status: Acute (3) Gestational hypertension Status: Acute Qualifiers: Trimester: third trimester Qualified Code(s): O13.3 - Gestational [-induced] hypertension without significant proteinuria, third trimester Plan - Discharge Medications Prescriptions: Lidocain2.5%/Prilocai2.5% [Emla] 2 gm TP ONCE #1 tube Ibuprofen [Motrin 800 MG tab] 800 mg PO Q6HR PRN #30 tablet PRN Reason: Pain , Severe (7-10) oxyCODONE /ACETAMINOPHEN [Percocet 5/325] 1 tab PO Q4HR #30 tab - Provider Discharge Summary Activity: routine, no sex for 6 weeks, no heavy lifting 4 weeks, no strenuous exercise Diet: routine Instructions: routine Additional instructions: [] Smoking cessation referral if applicable(refer to patient education folder for contact #) [] Refer to [facility] Booklet Call your doctor immediately for: * Fever > 100.5 * Heavy vaginal bleeding ( >1 pad per hour) * Severe persistent headache * Shortness of breath * Reddened, hot, painful area to leg or breast * Drainage or odor from incision. * Keep incision clean and dry at all times and follow doctor's instructions regarding bathing/showering Patient to make appointment for son's circumcision - Follow up plan Follow up: RADHA BROWNING MD [Primary Care Provider] - 7 Days
[2018-09-06 11:33] VITALS: BP 131/89
== END 2018-09-06 14:41 | disposition home or self-care (01) | DRG 765 ==
LOC: TRG 12:02 → LD 14:29 → TRG 19:38 → LD 19:39 → OB 09-04 03:48
PROVIDERS: ADMIT Obstetrics & Gynecology; ATTEND Obstetrics & Gynecology
PROC: 3E0P7VZ Introduction of Hormone into Female Reproductive, Via Natural or Artificial Opening (ICD-10-PCS; 2018-09-02)
PROC: 10H07YZ Insertion of Other Device into Products of Conception, Via Natural or Artificial Opening (ICD-10-PCS; 2018-09-03)
PROC: 10D00Z1 Extraction of Products of Conception, Low, Open Approach (ICD-10-PCS; principal; 2018-09-04)
PROC: 3E0234Z Introduction of Serum, Toxoid and Vaccine into Muscle, Percutaneous Approach (ICD-10-PCS; 2018-09-05)
DX: O13.4 Gestational [pregnancy-induced] hypertension without significant proteinuria, complicating childbirth (principal); O99.354 Diseases of the nervous system complicating childbirth; G43.909 Migraine, unspecified, not intractable, without status migrainosus; O99.824 Streptococcus B carrier state complicating childbirth; O69.81X0 Labor and delivery complicated by cord around neck, without compression, not applicable or unspecified; O62.2 Other uterine inertia; Z3A.40 40 weeks gestation of pregnancy; Z37.0 Single live birth; Z23 Encounter for immunization; Z82.49 Family history of ischemic heart disease and other diseases of the circulatory system; Z83.3 Family history of diabetes mellitus; O76 Abnormality in fetal heart rate and rhythm complicating labor and delivery
CPT/HCPCS: 36415; 81001; 82565; 83615; 84450; 84460; 84550; 85014; 85018; 85027; 86592; 86706; 86850; 86900; 86901; 88307; G0378; J0290; J0690; J1100; J1885; J2405; J2590; J2765; J3010; J7120; J7121

== ENCOUNTER 2021-12-24 00:50 | Outpatient (CLI) | payer MEDICAID ==
[2021-12-24] MEDS ORDERED: LACTATED RINGERS 500 ML IV ONE (02:07)
[2021-12-24 02:29] VITALS: BP 132/76
--- NOTE | 2021-12-24 23:13 | Ultrasound Report ---
ULTRASOUND BIOPHYSICAL PROFILE INDICATION / CLINICAL INFORMATION: decreased movement. Clinical Gestational Age (GA) in weeks, days: Unknown TECHNIQUE: Transabdominal. COMPARISON: None available. FINDINGS: BREATHING MOVEMENT = 2 GROSS BODY MOVEMENT = 2 TONE = 2 QUALITATIVE AMNIOTIC FLUID VOLUME = 2 TOTAL BIOPHYSICAL SCORE = 8/8 HEART RATE (beats per minute): 150 AMNIOTIC FLUID INDEX (cm) = 19.3 (normal = 7-24 cm) PRESENTATION: Transverse., Maternal right ADDITIONAL FINDINGS: Placenta is located anteriorly. IMPRESSION: 1. Biophysical Score = 8/8 Signer Name: Kaylan Chin MD Signed: 12/24/2021 11:09 PM Workstation Name: [id number]
== END 2021-12-24 05:02 | disposition home or self-care (01) ==
LOC: TRG 00:50 → APU 00:53 → TRG 05:02
PROVIDERS: ATTEND Obstetrics & Gynecology
DX: O36.8120 Decreased fetal movements, second trimester, not applicable or unspecified (principal); Z3A.26 26 weeks gestation of pregnancy
CPT/HCPCS: 76815; 76819